=== PATIENT | male | born 1980 | race Caucasian/White ===

== ENCOUNTER 2016-05-17 21:50 | Emergency (ER) | payer OTHER ==
[~2016-05-17] VITALS: Ht 182.9 cm; Wt 113.2 kg
[2016-05-17 21:56] VITALS: BP 167/118; PULSE 79; RESP 18; O2SAT 97
[2016-05-17 23:07] LABS: BASOPHILS % (AUTO) 2.1 % (0-3); EOSINOPHILS % (AUTO) 6.2 % (0-5); MONOCYTES % (AUTO) 9.9 % (4-12); Mean Corpuscular Hemoglobin 31.2 pg (27.0-35.0); Mean Corpuscular Volume 88.8 fL (81-100); NEUTROPHILS % (AUTO) 41.5 % (40-74); Platelet Count 241 bil/L (150-400)
[2016-05-17 23:09] LABS: Magnesium 2.3 mg/dL (1.6-2.6)
--- NOTE | 2016-05-18 00:18 | ED.REPORT ---
HPI-GI Bleed Date of Service May 18, 2016 ED Provider: Kory Spring MD The patient is a 36 year old male who presents to the ED due to hematochezia onset earlier today. Around noon, he went to the bathroom while at work and saw bright red blood in the toilet. Pt describes says it is pretty much just blood not much stool. He c/o associated abdominal pain. He denies fever and other illness. Pt is not on a blood thinner. He does not take very many anti- inflammatories like Aleve or Advil. He does not have hx of ulcers or colonoscopy. Nursing Notes Stated Complaint: ABDOMINAL PAIN Chief Complaint: Male Abdominal Pain Nursing Notes Reviewed: Yes Allergies: Coded Allergies: No Known Allergies (Unverified , 05/17/16) General Time Seen by Provider: 00:13 Chief Complaint Chief Complaint: Other (hematochezia) Bleeding Severity: Moderate Hx Obtained From: Patient Arrived By: Walk-in Past Medical History Past Medical History healthy Past Surgical History denies Smoking History Unknown if Ever Smoker Social History Other Social History: Good social support, Local resident Ambulatory Status Independent Review of Systems GI: Reports: Bloody/tarry stool, Hematochezia, Denies: Constipation Complete sys rev & neg: except as marked. Physical Exam Initial Vital Signs Vital Signs (First) Date Time Temp Pulse Resp B/P Pulse Ox O2 Delivery O2 Flow Rate FiO2 05/17/16 21:56 37.0 79 18 167/118 97 Room Air Initial VS: Reviewed, Vital signs abnormal Head / Eyes: Atraumatic, Normocephalic, PERRL ENT: Mucous membranes moist Extremities: Vascular intact, Neuro intact, No swelling, No tenderness Skin: Warm, Dry Psychiatric: Mood/affect normal General/Constitutional: Awake, Alert, No acute distress, Cooperative Appearance / Presentation: Positive: Obese no diaphoresis Respiratory / Chest: Atraumatic, Breath sounds NL Cardiovascular: Heart rate NL, Regular rhythm, Heart sounds NL Abdomen: Atraumatic, Soft, Non-tender Rectum / Perineum: Atraumatic no evidence of fissure or hemorrhoid Interpretation & Diagnostics Lab Results Interpretation Result Diagram: 05/18/16 0108 05/17/16 2241 Test 05/17/16 22:41 05/18/16 00:26 05/18/16 01:08 Sodium Level 137mEq/L (134-144) Potassium Level 4.0mEq/L (3.5-5.2) Chloride Level 98mEq/L (97-108) Carbon Dioxide Level 21mmol/L (18-29) Blood Urea Nitrogen 10mg/dL (6-20) Creatinine 0.94mg/dL (0.76-1.27) Estimat Glomerular Filtration Rate 97mL/min (>59) Glucose Level 106mg/dL (60-99) Calcium Level 8.7mg/dL (8.5-10.1) Magnesium Level 2.3mg/dL (1.6-2.6) Total Bilirubin 0.3mg/dL (0.0-1.2) Aspartate Amino Transf (AST/SGOT) 48U/L (0-50) Alanine Aminotransferase (ALT/SGPT) 103U/L (0-44) Alkaline Phosphatase 86U/L (25-150) Total Protein 7.6g/dL (6.4-8.4) Albumin 4.9g/dL (3.4-5.0) Lipase 83U/L (13-60) Hold Nair Top Tube Received (Received) Urine Color Straw (YELLOW) Urine Appearance Clear (CLEAR,HAZY) Urine pH 6.0 (5.0-8.0) Urine Specific [place] 1.005 (1.003-1.035) Urine Protein Negativemg/dL (NEG,TRACE) Urine Glucose (UA) Negativemg/dL (NEGATIVE) Urine Ketones Negativemg/dL (NEGATIVE) Urine Occult Blood Negative (NEGATIVE) Urine Nitrite Negative (NEGATIVE) Urine Bilirubin Negative (NEGATIVE) Urine Urobilinogen Normalmg/dL (NORMAL) Urine Leukocyte Esterase Negative (NEGATIVE) Urine RBC 0-2/hpf (0-2) Urine WBC 0-5/hpf (0-5) Urine Epithelial Cells None/hpf (NONE-MOD) Urine Crystals None seen (NONE SEEN) Urine Bacteria None/hpf (NONE-FEW) Urine Hyaline Casts None/lpf (NONE) Urine Granular Casts None seen (NONE SEEN) Urine Waxy Casts None seen (NONE SEEN) Urine Red Blood Cell Casts None seen (NONE SEEN) Urine White Blood Cell Casts None seen (NONE SEEN) Urine Mucus None seen (None Seen) Urine Trichomonas None seen (NONE SEEN) Urine Yeast None (NONE SEEN) Urinalysis Comment None Urine Culture Reflexed Not indicated White Blood Count 6.2th/mm3 (3.8-10.1) Red Blood Count 4.92mil/mm3 (4.40-5.80) Hemoglobin 15.4g/dL (13.8-17.2) Hematocrit 43.4% (41.0-50.0) Mean Corpuscular Volume 88.2fL (81-100) Mean Corpuscular Hemoglobin 31.3pg (27.0-35.0) Mean Corpuscular Hemoglobin Concent 35.5% (32.0-37.0) Red Cell Distribution Width 12.3% (12.3-15.4) Platelet Count 238bil/L (150-400) Neutrophils (%) (Auto) 45.6% (40-74) Lymphocytes (%) (Auto) 39.2% (14-46) Monocytes (%) (Auto) 7.1% (4-12) Eosinophils (%) (Auto) 5.1% (0-5) Basophils (%) (Auto) 2.4% (0-3) Lab values outside NL range: no clinical significance. Re-Eval/Medical Decision Med Decision/Clinical Course 36-year-old male who has bright red blood per rectum throughout the day today. This is painless. He has no orthostatic changes by history and no orthostatic vital sign changes. His H&H is normal. External rectal examination is normal. No abnormality as seen but I suspect that he has a fissure. He will use hemorrhoidal preparations and follow up with his primary provider for lower endoscopy. Counseled Regarding: Diagnosis, Lab results, Need for follow-up, When/why to return to ED Discharge & Departure Impression: Primary Impression: Rectal bleeding Disposition: Home Discharge Condition All VS Reviewed: Yes Condition: Stable Patient Instructions: Anal Fissure (ED) Additional Instructions: Your blood work and vital signs do not indicate that you have lost a dangerous amount of blood. If it is a fissure, this will heal in 2 to 3 days. Anusol, Preparation H or similar OTC hemorrhoidal suppository. Follow up with your primary care physician to schedule a sigmoidoscopy. Return to the Emergency Department for any new or worsening symptoms. Referrals: Aleksandr Stanley MD (PCP) Scribe Attestation Portion of this note were transcribed by Stephanie Huertas. I, Dr. Spring, personally performed the history, physical exam, and medical decision-making: I reviewed and confirmed the accuracy for the information in the transcribed note. Signed by: yeimy Burk, 05/18/16 0100 copies to: Aleksandr Stanley MD, Kory Pan MD May 18, 2016 00:18 Stephanie Huertas May 18, 2016 00:37
[2016-05-18 00:24] VITALS: BP 146/102; PULSE 75; RESP 16; O2SAT 98
[2016-05-18 00:35] LABS: APPEARANCE,URINE CLEAR (CLEAR,HAZY); COLOR,URINE STRAW (YELLOW); OCCULT BLOOD,URINE NEGATIVE (NEGATIVE); UROBILINOGEN,URINE NORMAL (NORMAL)
[2016-05-18 00:46] VITALS: BP_SYST 142; BP_SYST 149; BP_DIAS 102; BP_DIAS 97; PULSE 77; PULSE 80
[2016-05-18 01:18] LABS: BASOPHILS % (AUTO) 2.4 % (0-3); EOSINOPHILS % (AUTO) 5.1 % (0-5); MONOCYTES % (AUTO) 7.1 % (4-12); Mean Corpuscular Hemoglobin 31.3 pg (27.0-35.0); Mean Corpuscular Volume 88.2 fL (81-100); NEUTROPHILS % (AUTO) 45.6 % (40-74); Platelet Count 238 bil/L (150-400)
== END 2016-05-18 01:52 | disposition home or self-care (01) ==
LOC: SED 21:50
DX: K62.5 Hemorrhage of anus and rectum (principal); R10.9 Unspecified abdominal pain; I10 Essential (primary) hypertension